=== PATIENT | male | born 1995 | race Caucasian/White ===

== ENCOUNTER → 2017-04-15 | Outpatient (CLI) | payer OTHER ==
--- NOTE | 2017-04-15 16:16 | KCIC ---
Examination: 3 views of the left knee and 2 views of the tibia and fibula HISTORY: History of left knee pain, medial side bruising COMPARISON: None available Findings: The alignment of the knee joint grossly appears unremarkable. There is no acute fracture or dislocation identified. The alignment of the tibia and fibula grossly appears unremarkable. Small probable dorsal osteophyte identified dorsal to the tarsal bone. IMPRESSION: No acute osseous findings Electronically signed by: Damon Curran MD (04/15/2017 4:13 PM) [facility]
--- NOTE | 2017-04-15 16:16 | KCIC ---
Examination: 3 views of the left knee and 2 views of the tibia and fibula HISTORY: History of left knee pain, medial side bruising COMPARISON: None available Findings: The alignment of the knee joint grossly appears unremarkable. There is no acute fracture or dislocation identified. The alignment of the tibia and fibula grossly appears unremarkable. Small probable dorsal osteophyte identified dorsal to the tarsal bone. IMPRESSION: No acute osseous findings Electronically signed by: Damon Curran MD (04/15/2017 4:13 PM) [facility]
== END | disposition home or self-care (01) ==
LOC: KCIC 15:27
PROVIDERS: ATTEND Nurse Practitioner Family
DX: S89.92XA Unspecified injury of left lower leg, initial encounter (principal)
CPT/HCPCS: 73562; 73590

== ENCOUNTER 2018-01-15 14:33 | Emergency (ER) | payer OTHER ==
[2018-01-15 15:16] LABS: ADD MAN DIFF? NO
[2018-01-15 15:26] LABS: BASO % 1 % (0-3); EOS # 0.1 x10^3/uL (0.0-0.7); EOS % 2 % (0-3); HEMATOCRIT 40.1 % (39.0-53.0); HEMOGLOBIN 13.7 g/dL (13.0-17.5); LYMPH # 1.4 x10^3/uL (1.0-4.8); LYMPH % 30 % (24-48); MEAN CORPUSCULAR HEMOGLOBIN 31 pg (25-35); MEAN CORPUSCULAR HGB CONC 34 g/dL (31-37); MEAN CORPUSCULAR VOLUME 91 fL (79-100); MONO # 0.4 x10^3/uL (0.0-1.1); MONO % 9 % (0-9); NEUT # 2.6 x10^3uL (1.8-7.7); NEUT % 57 % (31-73); PLATELET COUNT 279 x10^3/uL (140-400); RED BLOOD COUNT 4.44 x10^6/uL (4.30-5.70); RED CELL DISTRIBUTION WIDTH 12.6 % (11.5-14.5); WHITE BLOOD COUNT 4.6 x10^3/uL (4.0-11.0)
[2018-01-15 15:31] LABS: ANION GAP 13 (6-14); BLOOD UREA NITROGEN 17 mg/dL (8-26); BUN/CREATININE RATIO 24 (6-20); CALCIUM 9.1 mg/dL (8.5-10.1); CARBON DIOXIDE 20 mmol/L (21-32); CHLORIDE 105 mmol/L (98-107); CREATININE 0.7 mg/dL (0.7-1.3); GFR 139.8; GLUCOSE 94 mg/dL (70-99); POTASSIUM 3.7 mmol/L (3.5-5.1); SODIUM 138 mmol/L (136-145)
[2018-01-15 15:36] LABS: ALBUMIN 4.4 g/dL (3.4-5.0); ALBUMIN/GLOBULIN RATIO 1.6 (1.0-1.7); ALK PHOS 106 U/L (46-116); ALT (SGPT) 29 U/L (16-63); AST (SGOT) 17 U/L (15-37); TOTAL BILIRUBIN 0.4 mg/dL (0.2-1.0); TOTAL PROTEIN 7.2 g/dL (6.4-8.2)
== END 2018-01-15 16:16 | disposition home or self-care (01) ==
LOC: ER 16:16
DX: S20.462A Insect bite (nonvenomous) of left back wall of thorax, initial encounter (principal); R62.50 Unspecified lack of expected normal physiological development in childhood; Z88.1 Allergy status to other antibiotic agents; Z88.8 Allergy status to other drugs, medicaments and biological substances; Z88.2 Allergy status to sulfonamides; W57.XXXA Bitten or stung by nonvenomous insect and other nonvenomous arthropods, initial encounter; Y93.89 Activity, other specified; Y99.8 Other external cause status; Y92.89 Other specified places as the place of occurrence of the external cause
CPT/HCPCS: 36415; 80053; 85025; 99284

== ENCOUNTER → 2018-05-05 | Outpatient (CLI) | payer OTHER ==
[2018-01-15 16:14] VITALS: BP 119/75
[~2018-05-05] MED LIST: CITA20TA6 PO; DOXY100T PO; LAMO25TA5 PO; TOPI100T42 PO
--- NOTE | 2018-05-05 15:09 | KCIC ---
EXAM: Chest, 2 views. HISTORY: Seizure disorder. COMPARISON: None. FINDINGS: 2 views of the chest are obtained. There is no infiltrate, pleural effusion or pneumothorax. The heart is normal in size. There is gaseous distention of the stomach and loops of bowel within the upper abdomen. IMPRESSION: 1. No acute pulmonary finding. 2. Gaseous distention of the stomach and loops of bowel within the upper abdomen. Electronically signed by: Chelsea Walker MD (05/05/2018 3:05 PM) [place] [id number]
== END | disposition home or self-care (01) ==
LOC: KCIC 14:33
PROVIDERS: ATTEND Nurse Practitioner Family
DX: Z01.818 Encounter for other preprocedural examination (principal); G40.909 Epilepsy, unspecified, not intractable, without status epilepticus; Z88.1 Allergy status to other antibiotic agents; Z88.2 Allergy status to sulfonamides; Z88.8 Allergy status to other drugs, medicaments and biological substances
CPT/HCPCS: 71046

== ENCOUNTER 2019-08-21 11:46 | Emergency (ER) | payer OTHER ==
[~2019-08-21] VITALS: Ht 165.1 cm; Wt 47.6 kg
--- NOTE | 2019-08-21 13:31 | PHYS DOC ---
Past Medical History Past Medical History: Seizure, Other Additional Past Medical Histor: renal tubal cirrhosis,autisum,OCD, DEVELOPMENTAL DELAY Past Surgical History: Other Additional Past Surgical Histo: brain ablasion, right shoulder lipoma, CRANIOTOMY 03/2019 Alcohol Use: None Drug Use: None Adult General Chief Complaint Chief Complaint: OTHER COMPLAINTS HPI HPI Patient is a 24 year old male who presents with loss of appetite, fatigue, cough, sore throat, runny nose, loss of appetite, not taking fluids that started over the last several days. Patient is nonverbal has a history of autism. Historian was the Parents. Review of Systems Review of Systems Unable to perform due to non-verbal Current Medications Current Medications Current Medications Medications (Trade) Dose Ordered Sig/Magalie Start Time Stop Time Status Last Admin Dose Admin Ondansetron HCl (Zofran) 4 mg 1X ONCE 08/21/19 13:30 08/21/19 13:32 DC 08/21/19 14:28 4 MG Sodium Chloride 1,000 ml @ 1,000 mls/hr 1X ONCE 08/21/19 13:30 08/21/19 14:29 DC 08/21/19 14:28 1,000 MLS/HR Allergies Allergies Allergies Coded Allergies Type Severity Reaction Last Updated Verified diazepam Allergy Severe resp arrest 01/15/18 Yes vancomycin Allergy Severe red man syndrome 01/15/18 Yes adhesive tape Allergy Intermediate irritates skin 01/15/18 Yes erythromycin base Allergy Intermediate skin rash 01/15/18 Yes sulfisoxazole Allergy Intermediate skin rash 01/15/18 Yes phenobarbital Adverse Reaction Intermediate lethargy 01/15/18 Yes phenytoin Adverse Reaction Intermediate lethargy 01/15/18 Yes Physical Exam Physical Exam Constitutional: Well developed, well nourished, no acute distress, non-toxic appearance. [] HENT: Normocephalic, atraumatic, bilateral external ears normal, bilateral tympanic membranes are erythematous with no bulging, oropharynx moist, unable to assess mouth and throat due to unwilling to open mouth, nose normal. [] Eyes: PERRLA, EOMI, conjunctiva normal, no discharge. [] Neck: Normal range of motion, no tenderness, supple, no stridor. [] Cardiovascular:Heart rate regular rhythm, no murmur [] Lungs & Thorax: Bilateral breath sounds clear to auscultation [] Skin: Warm, dry, no erythema, no rash. [] Neurologic: Unable to assess due to non-verbal. Current Patient Data Vital Signs Vital Signs Date Time Temp Pulse Resp B/P (MAP) Pulse Ox O2 Delivery O2 Flow Rate FiO2 08/21/19 12:46 98.2 88 18 113/76 (88) 98 Room Air 98.2 Lab Values Laboratory Tests Test 08/21/19 14:09 08/21/19 14:20 Influenza Type A Antigen Negative (NEGATIVE) Influenza Type B Antigen Negative (NEGATIVE) Group A Streptococcus Rapid Negative (NEGATIVE) White Blood Count 4.4 x10^3/uL (4.0-11.0) Red Blood Count 4.38 x10^6/uL (4.30-5.70) Hemoglobin 12.9 g/dL (13.0-17.5) L Hematocrit 38.9 % (39.0-53.0) L Mean Corpuscular Volume 89 fL (79-100) Mean Corpuscular Hemoglobin 30 pg (25-35) Mean Corpuscular Hemoglobin Concent 33 g/dL (31-37) Red Cell Distribution Width 12.2 % (11.5-14.5) Platelet Count 391 x10^3/uL (140-400) Neutrophils (%) (Auto) 57 % (31-73) Lymphocytes (%) (Auto) 33 % (24-48) Monocytes (%) (Auto) 8 % (0-9) Eosinophils (%) (Auto) 2 % (0-3) Basophils (%) (Auto) 1 % (0-3) Neutrophils # (Auto) 2.5 x10^3/uL (1.8-7.7) Lymphocytes # (Auto) 1.4 x10^3/uL (1.0-4.8) Monocytes # (Auto) 0.4 x10^3/uL (0.0-1.1) Eosinophils # (Auto) 0.1 x10^3/uL (0.0-0.7) Basophils # (Auto) 0.0 x10^3/uL (0.0-0.2) Sodium Level 140 mmol/L (136-145) Potassium Level 3.8 mmol/L (3.5-5.1) Chloride Level 105 mmol/L (98-107) Carbon Dioxide Level 27 mmol/L (21-32) Anion Gap 8 (6-14) Blood Urea Nitrogen 19 mg/dL (8-26) Creatinine 0.9 mg/dL (0.7-1.3) Estimated GFR (Cockcroft-Gault) 103.7 BUN/Creatinine Ratio 21 (6-20) H Glucose Level 84 mg/dL (70-99) Calcium Level 9.0 mg/dL (8.5-10.1) Total Bilirubin 0.2 mg/dL (0.2-1.0) Aspartate Amino Transferase (AST) 10 U/L (15-37) L Alanine Aminotransferase (ALT) 19 U/L (16-63) Alkaline Phosphatase 141 U/L (46-116) H Total Protein 7.1 g/dL (6.4-8.2) Albumin 3.7 g/dL (3.4-5.0) Albumin/Globulin Ratio 1.1 (1.0-1.7) Laboratory Tests 08/21/19 14:20 Laboratory Tests 08/21/19 14:20 EKG EKG [] Radiology/Procedures Radiology/Procedures [] [address] [place] [address] IMAGING REPORT Signed PATIENT: FIDENCIO FUENTES ACCOUNT: [id number] : 1995 LOCATION: ER AGE: 24 SEX: M EXAM STATUS: REG ER ORD. PHYSICIAN: DELVIN SOLER APRN REASON: cough PROCEDURE: PORTABLE CHEST 1V EXAM: Chest, single view. HISTORY: Cough. COMPARISON: 05/05/2018 FINDINGS: A frontal view of the chest is obtained. There is no infiltrate, pleural effusion or pneumothorax. The heart is normal in size. There are prominent air-filled bowel within the upper abdomen. IMPRESSION: No acute pulmonary finding. Electronically signed by: Chelsea Castellanos MD (08/21/2019 1:41 PM) [place] [id number] DICTATED and SIGNED BY: CHELSEA CASTELLANOS MD DATE: 08/21/19 5821 Course & Med Decision Making Course & Med Decision Making Pertinent Labs and Imaging studies reviewed. (See chart for details) Will get labs, strep, flu, and give supportive care. Labs are unremarkable, strep is negative, Flu is negative. Will d/c home with Zofran and return precautions. Dragon Disclaimer Dragon Disclaimer This electronic medical record was generated, in whole or in part, using a voice recognition dictation system. Departure Departure Impression: Primary Impression: Viral syndrome Disposition: 01 HOME, SELF-CARE Condition: STABLE Referrals: LEENA BRUCE APRN (PCP) Patient Instructions: Viral Syndrome Additional Instructions: Thank you for visiting [facility]. We appreciate you trusting us with your care. If any additional problems come up don't hesitate to return to visit us. Please follow up with your primary care provider so they can plan additional care if needed and know about the problem that you had. If symptoms worsen come back to the Emergency Department. Any concerning symptoms that start such as chest pain, shortness of air, weakness or numbness on one side of the body, running high fevers or any other concerning symptoms return to the ER. Please fill your medications at any pharmacy and follow the prescription instructions. Please drink plenty of fluids. If unable to keep fluids down please return to ER. Please get Tylenol and Ibuprofen over the counter. Give each medication every 6 hours as directed by the medication labels. In order to utilize the peak of the medications stagger the medications to where the child is getting one of the medications every 3 hours. For example if you give Ibuprofen at 3 PM, you then give Tylenol at 6 PM and Ibuprofen again at 9 PM, and then Tylenol at midnight. Please get Zyrtec over the counter and take per label instructions for runny nose. Scripts Ondansetron (ONDANSETRON ODT) 4 Mg Tab.rapdis 1 TAB PO PRN Q6-8HRS PRN for NAUSEA, #16 TAB Prov: DELVIN SOLER APRN 08/21/19 DELVIN SOLER APRN Aug 21, 2019 13:31
--- NOTE | 2019-08-21 13:44 | RAD ---
EXAM: Chest, single view. HISTORY: Cough. COMPARISON: 05/05/2018 FINDINGS: A frontal view of the chest is obtained. There is no infiltrate, pleural effusion or pneumothorax. The heart is normal in size. There are prominent air-filled bowel within the upper abdomen. IMPRESSION: No acute pulmonary finding. Electronically signed by: Chelsea Walker MD (08/21/2019 1:41 PM) [place] [id number]
[2019-08-21] MEDS: IV NORMAL SALINE 1000ML BAG 1,000 ML IV ONE (14:28)
[2019-08-21] MEDS: ONDANSETRON PF 4 MG/2 ML VIAL. IV ONE (14:28)
[2019-08-21 14:33] LABS: BASO % 1 % (0-3); EOS # 0.1 x10^3/uL (0.0-0.7); EOS % 2 % (0-3); HEMATOCRIT 38.9 % (39.0-53.0); HEMOGLOBIN 12.9 g/dL (13.0-17.5); LYMPH # 1.4 x10^3/uL (1.0-4.8); LYMPH % 33 % (24-48); MEAN CORPUSCULAR HEMOGLOBIN 30 pg (25-35); MEAN CORPUSCULAR HGB CONC 33 g/dL (31-37); MEAN CORPUSCULAR VOLUME 89 fL (79-100); MONO # 0.4 x10^3/uL (0.0-1.1); MONO % 8 % (0-9); NEUT # 2.5 x10^3/uL (1.8-7.7); NEUT % 57 % (31-73); PLATELET COUNT 391 x10^3/uL (140-400); RED BLOOD COUNT 4.38 x10^6/uL (4.30-5.70); RED CELL DISTRIBUTION WIDTH 12.2 % (11.5-14.5); WHITE BLOOD COUNT 4.4 x10^3/uL (4.0-11.0)
[2019-08-21 14:48] LABS: CREATININE 0.9 mg/dL (0.7-1.3); GFR 103.7; POTASSIUM 3.8 mmol/L (3.5-5.1)
[2019-08-21 14:53] LABS: ALBUMIN 3.7 g/dL (3.4-5.0); ALBUMIN/GLOBULIN RATIO 1.1 (1.0-1.7); TOTAL BILIRUBIN 0.2 mg/dL (0.2-1.0); TOTAL PROTEIN 7.1 g/dL (6.4-8.2)
[2019-08-21 14:55] LABS: INFLUENZA A PATIENT NEGATIVE (NEGATIVE); INFLUENZA B PATIENT NEGATIVE (NEGATIVE)
[2019-08-21] MEDS ORDERED: ONDA4TAB12 PO (15:00)
[2019-08-21 15:52] VITALS: BP 93/61
== END 2019-08-21 16:00 | disposition home or self-care (01) ==
LOC: ER 11:46
DX: B34.9 Viral infection, unspecified (principal); Z88.1 Allergy status to other antibiotic agents; Z88.2 Allergy status to sulfonamides; Z88.8 Allergy status to other drugs, medicaments and biological substances
CPT/HCPCS: 36415; 71045; 80053; 85025; 87070; 87804; 87880; 96374; 99285; J2405; J7030

== ENCOUNTER 2020-03-12 18:59 | Emergency (ER) | payer OTHER ==
[~2020-03-12] VITALS: Ht 165.1 cm; Wt 48.1 kg
[~2020-03-12 18:59] MED LIST changes: +ONDA4TAB12 PO
--- NOTE | 2020-03-12 19:18 | PHYS DOC ---
Past Medical History Past Medical History: Seizure, Other Additional Past Medical Histor: renal tubal cirrhosis,autisum,OCD, DEVELOPMENTAL DELAY Past Surgical History: Other Additional Past Surgical Histo: brain ablasion, right shoulder lipoma, CRANIOTOMY 03/2019 Smoking Status: Never Smoker Alcohol Use: None Drug Use: None General Adult EDM: Chief Complaint: MECHANICAL FALL HPI: HPI: Patient is a 25-year-old autistic male who tripped and fell into a custom-made nightstand opening up a laceration just lateral to his left eyebrow. He did not lose consciousness. Mom states he has been acting his usual self since this happened less than an hour ago. He has had no vomiting. [] Review of Systems: Review of Systems: Review of systems is unobtainable secondary to nonverbal autistic Heart Score: Risk Factors: Risk Factors: DM, Current or recent (<one month) smoker, HTN, HLP, family history of CAD, obesity. Risk Scores: Score 0 - 3: 2.5% MACE over next 6 weeks - Discharge Home Score 4 - 6: 20.3% MACE over next 6 weeks - Admit for Clinical Observation Score 7 - 10: 72.7% MACE over next 6 weeks - Early Invasive Strategies Allergies: Allergies: Allergies Coded Allergies Type Severity Reaction Last Updated Verified diazepam Allergy Severe resp arrest 01/15/18 Yes vancomycin Allergy Severe red man syndrome 01/15/18 Yes adhesive tape Allergy Intermediate irritates skin 01/15/18 Yes erythromycin base Allergy Intermediate skin rash 01/15/18 Yes sulfisoxazole Allergy Intermediate skin rash 01/15/18 Yes phenobarbital Adverse Reaction Intermediate lethargy 01/15/18 Yes phenytoin Adverse Reaction Intermediate lethargy 01/15/18 Yes Physical Exam: PE: Constitutional: Well developed, well nourished, no acute distress, non-toxic appearance. [] HENT: Normocephalic, atraumatic, bilateral external ears normal, oropharynx moist, no oral exudates, nose normal. [] Eyes: PERRLA, EOMI, conjunctiva normal, no discharge. [] Neck: Normal range of motion, no tenderness, supple, no stridor. [] Cardiovascular:Heart rate regular rhythm, no murmur [] Lungs & Thorax: Bilateral breath sounds clear to auscultation [] Abdomen: Bowel sounds normal, soft, no tenderness, no masses, no pulsatile masses. [] Skin: 2 cm linear laceration just lateral to the lateral canthus of the left eye [] Back: No tenderness, no CVA tenderness. [] Extremities: Contractions that are chronic [] Neurologic: Alert and oriented X 3, normal motor function, normal sensory function, no focal deficits noted. [] Psychologic: Anxious but awake and interactive appropriate per mom [] EKG: EKG: [] Radiology/Procedures: Radiology/Procedures: [] Course & Med Decision Making: Course & Med Decision Making Pertinent Labs and Imaging studies reviewed. (See chart for details) [Procedure: Laceration repair The wound was scrubbed with Hibiclens and inspected for foreign body in a bloodless field none was found. Then using Dermabond the wound edges were reapproximated. Patient tolerated the procedure well.] Dragon Disclaimer: Dragon Disclaimer: This electronic medical record was generated, in whole or in part, using a voice recognition dictation system. Departure Departure Impression: Primary Impression: Facial laceration Qualified Codes: S01.81XA - Laceration without foreign body of other part of head, initial encounter Disposition: 01 HOME, SELF-CARE Condition: IMPROVED Referrals: LEENA BRUCE APRN (PCP) Patient Instructions: Facial Laceration Additional Instructions: Return to the emergency department with any new or concerning symptoms Justicifation of Admission Dx: Justifications for Admission: Justification of Admission Dx: WHITNEY Pedersen DO Mar 12, 2020 19:18
[2020-03-12 20:56] VITALS: BP 126/72
== END 2020-03-12 20:56 | disposition home or self-care (01) ==
LOC: ER 18:59
DX: S01.112A Laceration without foreign body of left eyelid and periocular area, initial encounter (principal); Z98.890 Other specified postprocedural states; Z90.89 Acquired absence of other organs; Z88.1 Allergy status to other antibiotic agents; Z88.2 Allergy status to sulfonamides; Z88.6 Allergy status to analgesic agent; Z88.8 Allergy status to other drugs, medicaments and biological substances; W01.0XXA Fall on same level from slipping, tripping and stumbling without subsequent striking against object, initial encounter; Y93.89 Activity, other specified; Y92.89 Other specified places as the place of occurrence of the external cause; Y99.8 Other external cause status
CPT/HCPCS: 12011; 99283